=== PATIENT | female | born 1960 | race Caucasian/White ===

== ENCOUNTER 2022-11-15 07:22 | Day surgery (SDC) | payer BC, OTHER ==
[~2022-11-15 07:22] MED LIST: Lactated Ringers 1,000 ML IV SCH; Sodium Chloride 0.9% 10 ML Syringe FLUSH PRN
[2022-11-15] MEDS ORDERED: Propofol 200 MG/20 ML SDV ONE ×2 (08:03→09:52)
[2022-11-15] MEDS ORDERED: fentaNYL 100 MCG/2 ML SDV ONE (08:04)
== END 2022-11-15 11:40 | disposition home or self-care (01) ==
LOC: VM.SDS 07:22
PROVIDERS: ATTEND Family Medicine
DX: Z12.11 Encounter for screening for malignant neoplasm of colon (principal); E61.1 Iron deficiency; N18.31 Chronic kidney disease, stage 3a; Z88.6 Allergy status to analgesic agent; Z86.010 Personal history of colon polyps; Z98.890 Other specified postprocedural states; Z79.899 Other long term (current) drug therapy
CPT/HCPCS: 00812; J2704; J3010; J7120